=== PATIENT | female | born 1995 | race Caucasian/White ===

== ENCOUNTER → 2021-01-22 15:36 | Outpatient (BNVA) | payer MEDICAID, SELFPAY | PROVIDERS: Family Provider Physician Assistant; Visit Provider Nurse Practitioner Family | DX: R35.0 Frequency of micturition (principal); N39.0 Urinary tract infection, site not specified | CPT/HCPCS: 81000 ==

== ENCOUNTER 2021-07-31 17:48 | Emergency (ER) | payer MEDICAID, SELFPAY ==
[2021-07-31 17:54] VITALS: BP 130/67; PULSE 96; RESP 20; TEMP 37; O2SAT 99; BMI 36.6
--- NOTE | 2021-07-31 18:38 | XRR_ITS ---
PROCEDURE INFORMATION: Exam: XR Chest Exam date and time: 07/31/2021 6:38 PM Age: 26 years old Clinical indication: Cough and fever TECHNIQUE: Imaging protocol: XR of the chest. Views: 1 view. COMPARISON: CR Chest 1 [place] [id number] 01/15/2018 8:35 AM FINDINGS: Lungs: Unremarkable. No consolidation. Pleural spaces: Unremarkable. No pleural effusion. No pneumothorax. Heart/Mediastinum: Unremarkable. No cardiomegaly. Bones/joints: Unremarkable. XR/XR chest 1V portable [id number] IMPRESSION: No acute findings.
== END 2021-07-31 20:03 ==
PROVIDERS: Emergency Provider Family Medicine
DX: Z53.21 Procedure and treatment not carried out due to patient leaving prior to being seen by health care provider (principal)
CPT/HCPCS: 71045

== ENCOUNTER 2021-07-31 21:24 | Emergency (ER) | payer MEDICAID, SELFPAY ==
[2021-07-31 21:37] VITALS: BP 136/68; PULSE 79; RESP 18; TEMP 36.3; O2SAT 98; BMI 36.6
--- NOTE | 2021-07-31 23:28 | ED_ITS ---
HPI - General Adult General: Chief complaint: General Medical Stated complaint: Cough Time Seen by Provider: 07/31/21 23:19 History of Present Illness: HPI narrative: Patient is a 26-year-old female comes to the ED with upper respiratory symptoms. Patient has had symptoms for the past 2 and half weeks. Patient says she is had productive cough with greenish-yellow sputum. She also reports having sinus congestion and pain along with nasal congestion and drainage. She has taken a full course of Z-Kg and prednisone and has not had any improvement. She tested negative for Covid last Sunday. Patient also reports having a headache. Patient denies any chance of being and just finished her menstrual period about a week ago. Associated symptoms: Reports headache(s); Deny chest pain, dyspnea, nausea, rash, palpitations or vomiting Review of Systems Const: Denies: fever(s), chills or fatigue Eyes: Denies: change in vision or eye discomfort ENMT: Reports: nasal discharge, nasal congestion and sinus pain; Denies: throat pain or odynophagia Card: Denies: chest pain, palpitations, edema, swelling of feet/ankles, dyspnea on exertion or orthopnea Resp: Reports: productive cough; Denies: dyspnea or non-productive cough GI: Denies: abdominal pain, nausea, vomiting, diarrhea, constipation or hematochezia : Denies: flank pain, dysuria or hematuria Musc: Denies: neck pain, back pain or extremity swelling Skin/Breast: Denies: rash or new lesions Neuro: Reports: headache(s); Denies: numbness in extremities or weakness in extremities PFS ED PFSH: Social History Smoking and tobacco status: never smoked Female Reproductive History: Date of last menstrual period: 07/19/21 Physical Exam Const: COMMON NORMALS: no acute distress, patient oriented x3 and alert GENERAL APPEARANCE: cooperative and comfortable HENMT: COMMON NORMALS: normocephalic HEAD & SCALP: normocephalic FACE & SINUS: sinus tenderness frontal (Bilateral) MOUTH: Normal oral and palatal mucosa present THROAT: posterior oropharynx normal and uvula midline Neck/C-Spine: COMMON NORMALS: supple GENERAL: Yes normal visual inspection Resp: COMMON NORMALS: normal respiratory effort, No retractions, No use of accessory muscles and clear to auscultation bilaterally EFFORT & INSPECTION: Yes able to speak in complete sentences and Yes Actively coughing dry and strong AUSCULTATION: clear to auscultation bilaterally Cardio: COMMON NORMALS: regular rate, regular rhythm, S1 normal heart sound present, S2 normal heart sound present, No gallops present (Cardio), No clicks present (Cardio), No murmurs present (Cardio) and Peripheral pulses 2+ throughout RATE: regular rate RHYTHM: regular rhythm HEART SOUNDS: S1 normal heart sound present and S2 normal heart sound present PERIPHERAL PULSES: Peripheral pulses 2+ throughout GI: COMMON NORMALS: Normal to inspection, nondistended, normoactive bowel sounds present, Soft to palpation, non-tender and no masses PALPATION: Yes Soft to palpation : COMMON NORMALS: Yes no CVA tenderness BLADDER/KIDNEY EXAM: Yes no CVA tenderness Back/Pelvis: COMMON NORMALS: no CVA tenderness Extremity: COMMON NORMALS: normal to inspection Neuro: COMMON NORMALS: patient oriented x3 and moves all extremities SENSORIUM/ORIENTATION: Yes alert Skin: GENERAL SKIN EXAM: dry skin Course Vital Signs: Vital signs: Vital Signs Temperature 97.3 F L 07/31/21 21:37 Pulse Rate 81 08/01/21 00:56 Respiratory Rate 20 H 08/01/21 00:56 Blood Pressure 129/77 08/01/21 00:56 Pulse Oximetry 97 08/01/21 00:56 MDM - General Adult MDM Narrative: Medical decision making narrative: Patient is a 26-year-old female comes to the ED with sinus pain and a productive cough for the past 2 weeks. Patient had negative Covid test earlier this week. Vitals are stable. Patient does have a lot of active strong coughing while here in the ED and also has some frontal sinus pain with palpation. Chest x-ray showed no acute findings. Influenza negative. She was given a DuoNeb breathing treatment here in the ED and her cough symptoms improved. Patient was diagnosed with acute bronchitis and sinusitis. She was discharged home with a prescription for an albuterol inhaler, Decadron, Zofran, Tessalon Perles and Bactrim. She was told to follow-up with her PCP in 5 to 7 days reevaluation. Return to ED precautions given. Patient stood agree with plan. Lab Data: Labs: Lab Results 08/01/21 00:03 Influenza Type A A g Negative (Negative) Influenza Type B A g Negative (Negative) Imaging Data^: CXR: Attestation: I personally reviewed and interpreted this imaging study as follows: Radiologist's impression: Darren [address] [id number] ReportSigned Patient: Gayle Felix #: [id number]: 1995Acct#:O [id number]/Sex: 26 / FADM Date: 07/31/21Loc: ERRoom/Bed:Attending Dr: Ordering Provider/Ordering MD: Stoney Goldstein Date of Service: 07/31/21 Procedure(s): XR chest 1V portable [id number] Accession Number(s): [id number] Report Number: [id number] PROCEDURE INFORMATION: Exam: XR Chest Exam date and time: 07/31/2021 6:38 PM Age: 26 years old Clinical indication: Cough and fever TECHNIQUE: Imaging protocol: XR of the chest. Views: 1 view. COMPARISON: CR Chest 1 [place] [id number] 01/15/2018 8:35 AM FINDINGS: Lungs: Unremarkable. No consolidation. Pleural spaces: Unremarkable. No pleural effusion. No pneumothorax. Heart/Mediastinum: Unremarkable. No cardiomegaly. Bones/joints: Unremarkable. XR/XR chest 1V portable [id number] IMPRESSION: No acute findings. Dictated By:Keny Linares MDSigned By:Keny Linares MDSigned Date/Time:07/31/212005DD/ 183 Discharge Plan Discharge Patient Disposition: Home Clinical Impression: Acute bronchitis Qualifiers: Bronchitis organism: unspecified organism Qualified Code(s): J20.9 - Acute bronchitis, unspecified Sinusitis, acute Qualifiers: Sinusitis location: frontal Recurrence: non-recurrent Qualified Code(s): J01.10 - Acute frontal sinusitis, unspecified Condition: Stable Prescriptions: New Bactrim DS 800-160 mg tablet 1 tab PO BID 7 Days Qty: 14 RF: 0 Decadron 6 mg tablet 6 mg PO DAILY 7 Days Qty: 7 RF: 0 benzonatate 100 mg capsule 100 mg PO Q6H PRN (Reason: cough) Qty: 20 RF: 0 albuterol sulfate 90 mcg/actuation HFA aerosol inhaler 2 inh inhalation Q6H PRN (Reason: shortness of breath or wheezing) Qty: 6.7 RF: 0 Zofran 4 mg tablet 4 mg PO Q8H PRN (Reason: nausea and vomiting) Qty: 20 RF: 0 No Action norgestimate-ethinyl estradiol [Sprintec (28)] 0.25-35 mg-mcg tablet 1 tab PO DAILY RF: 0 azithromycin 250 mg tablet See Rx Instructions PO .COMPLEX 5 Days Qty: 6 RF: 0 prednisone 10 mg tablet 30 mg PO DAILY 5 Days Qty: 15 RF: 0 Discharge Orders: Discharge ED (Routine); Ordered 08/01/21 Ordered By: Stoney Goldstein Discharge Diet: Regular Discharge Activity: Resume usual activity Patient Instructions: Sinusitis (ED), Acute Bronchitis (ED), Opioid Safety Activity Restrictions/Additional Instructions: Follow-up with medical provider as directed in 5 to 7 days reevaluation. Take medications as prescribed. Return to the ER or your medical provider if condition worsens. Please read and understand discharge instructions. Thank you for choosing [facility] for your healthcare needs today. Please realize this is an emergency room and that we are providing you with a medical screening exam and this may not be complete and all inclusive of all the testing and or work up that you may need to determine your ailment or severity of your illness. It is very important that you follow up as instructed or that you return to the Emergency Department should you have concerns or if your condition changes or worsens in any way. Coding Level of Care Code ED Assembler Rubber Footwear for Xochitl Stovall Exam Comprehensive
[2021-08-01 00:22] VITALS: PULSE 78; RESP 22; O2SAT 94
[2021-08-01] MEDS: ipratropium-albuterol 3 mL Neb 6 ML INHALATION (00:22)
[2021-08-01 00:23] LABS: Influenza A by IFA Negative (Negative); Influenza B by IFA Negative (Negative)
[2021-08-01 00:31] VITALS: RESP 20
[2021-08-01 00:32] VITALS: PULSE 84; RESP 20; O2SAT 96
[2021-08-01] MEDS: dexamethasone 10 mg/mL INJ IM (00:52)
[2021-08-01] MEDS: ketorolac 60 mg/2 mL INJ IM (00:52)
[2021-08-01] MEDS: benzonatate 100 mg Capsule PO (00:53)
[2021-08-01] MEDS: sulfamethoxazole-trimeth DS 160-800 mg Tablet 1 TAB PO (00:53)
[2021-08-01] MEDS: ondansetron 4 MG Tablet PO (00:53)
[2021-08-01 00:56] VITALS: BP 129/77; PULSE 81; RESP 20; O2SAT 97
== END 2021-08-01 00:56 | disposition home or self-care (01) ==
PROVIDERS: Emergency Provider Physician Assistant
DX: J20.9 Acute bronchitis, unspecified (principal); J01.10 Acute frontal sinusitis, unspecified
CPT/HCPCS: 87804; 94640; 96372; 99284; J1100; J1885; Q0162

== ENCOUNTER 2022-03-09 03:10 | Emergency (ER) | payer MEDICAID, SELFPAY ==
[2022-03-09 03:23] VITALS: BP 122/78; PULSE 106; RESP 16; TEMP 37.1; O2SAT 97; BMI 41.7
--- NOTE | 2022-03-09 04:03 | W.ED.GENADLT ---
HPI - General Adult General: Chief complaint: General Medical Stated complaint: Fever, headache Time Seen by Provider: 03/09/22 03:16 History of Present Illness: Ms. Felix is a 27-year-old lady currently approximately 16 weeks who presents to the emergency department due to headache and cough. Onset of symptoms was approximately 5 days ago. She does have sick contacts with similar symptoms. She has had frontal headache with mild associated unsteady feeling. Denies other neurologic deficits. She has had cough which is nonproductive and associated aching. Overall course of symptoms has persisted. Intensity is moderate. No other specific changes in health, exacerbating, or alleviating factors identified. Onset (ago): day(s) Severity: moderate Associated symptoms: Reports cough, headache(s) and malaise Review of Systems General: Reports: 10 or more systems reviewed and unremarkable except in HPI and below Const: Reports: malaise Neuro: Reports: headache(s) PFSH ED PFSH: Social History Smoking and tobacco status: never smoked Female Reproductive History: Date of last menstrual period: 07/19/21 Physical Exam Const: COMMON NORMALS: patient oriented x3 and alert GENERAL APPEARANCE: cooperative and well developed HENMT: COMMON NORMALS: normocephalic and atraumatic HEAD & SCALP: normocephalic and atraumatic THROAT: posterior oropharynx normal Eye: COMMON NORMALS: conjunctivae normal CONJUNCTIVA: Yes conjunctivae normal SCLERA: sclerae normal Neck/C-Spine: COMMON NORMALS: supple GENERAL: Yes trachea midline Resp: COMMON NORMALS: normal respiratory effort EFFORT & INSPECTION: Yes able to speak in complete sentences AUSCULTATION: diminished lung sounds Cardio: COMMON NORMALS: regular rate and regular rhythm RATE: regular rate RHYTHM: regular rhythm GI: COMMON NORMALS: Soft to palpation PALPATION: Yes Soft to palpation and No Tenderness to palpation present (GI) PERCUSSION: normal to percussion Extremity: GENERAL: Yes normal exam except as noted and No edema Neuro: COMMON NORMALS: patient oriented x3, CN's II-XII intact bilaterally, moves all extremities, no focal motor deficits and no sensory deficits noted SENSORIUM/ORIENTATION: Yes alert and No Orientation impaired Psych: COMMON NORMALS: mental status grossly normal and Normal thought process present THOUGHT PROCESS: Normal thought process present Course Vital Signs: Vital signs: Vital Signs Temperature 98.7 F 03/09/22 03:23 Pulse Rate 102 H 03/09/22 06:35 Respiratory Rate 16 03/09/22 06:35 Blood Pressure 125/82 03/09/22 06:35 Pulse Oximetry 99 03/09/22 06:35 Oxygen Delivery Me thod 03/09/22 03:23 MDM - General Adult Medical Decision Making 27-year-old lady currently presenting with generalized symptoms including headache. No focal abnormalities identified on exam. Patient is COVID-positive which likely explain symptoms. She was improved with symptom treatment with near complete resolution of headache. Satisfactory for outpatient management. Medical Records I reviewed the patient's medical records. Lab Data I reviewed the patient's lab results. Laboratory Results Influenza Type A Ag Negative (Negative) 03/09/22 03:45 Influenza Type B Ag Negative (Negative) 03/09/22 03:45 SARS-CoV-2 Ag (Rapid) Positive (Negative) H 03/09/22 03:45 Discharge Plan Discharge Patient Disposition: Home Clinical Impression: COVID-19, Headache Condition: Stable Prescriptions: New Reglan 10 mg tablet 10 mg PO Q6H PRN (Reason: headache) Qty: 10 0RF Rx Instructions: take with benadryl 25 mg if needed No Action norgestimate-ethinyl estradiol [Sprintec (28)] 0.25-35 mg-mcg tablet 1 tab PO DAILY azithromycin 250 mg tablet See Rx Instructions PO .COMPLEX 5 Days Qty: 6 0RF Rx Instructions: take 500 mg today (day 1), then 250 mg for 4 days (days 2-5) PO prednisone 10 mg tablet 30 mg PO DAILY 5 Days Qty: 15 0RF benzonatate 100 mg capsule 100 mg PO Q6H PRN (Reason: cough) Qty: 20 0RF albuterol sulfate 90 mcg/actuation HFA aerosol inhaler 2 inh inhalation Q6H PRN (Reason: shortness of breath or wheezing) Qty: 6.7 0RF Zofran 4 mg tablet 4 mg PO Q8H PRN (Reason: nausea and vomiting) Qty: 20 0RF Discharge Orders: Discharge ED (Routine); Ordered 03/09/22 Ordered By: Eddie Raman Discharge Diet: Usual diet Discharge Activity: Increase activity as tolerated Patient Instructions: at 15 to 18 Weeks (ED), COVID-19 (Coronavirus Disease 2019) (ED) Activity Restrictions/Additional Instructions: Thank you for visiting the emergency department. You were seen evaluated for cough and headache as well as generalized symptoms. You are found of COVID which likely explains her symptoms. We are pleased that you improved with treatment. Please follow-up with your education administrator and primary care provider. Please return to the emergency department for worsening symptoms or anything else that you are concerned about a feel needs emergency department evaluation. Coding Level of Care Code ED Psychosocial Rehabilitation Counselor for Xochitl Stovall
[2022-03-09 04:15] LABS: Influenza A by IFA Negative (Negative); Influenza B by IFA Negative (Negative); SARS Covid-2 Antigen Positive (Negative)
[2022-03-09] MEDS: sodium chloride 0.9% 1,000 ML 999 ML IV (05:21)
[2022-03-09] MEDS: metoclopramide 5 mg/mL SDV 2 mL 10 MG IVP (05:22)
[2022-03-09] MEDS: diphenhydrAMINE 50 mg/mL SDV 1mL 25 MG IVP (05:22)
[2022-03-09 06:35] VITALS: BP 125/82; PULSE 102; RESP 16; O2SAT 99
== END 2022-03-09 06:32 | disposition home or self-care (01) ==
PROVIDERS: Emergency Provider Emergency Medicine
DX: U07.1 COVID-19 (principal); R51.9 Headache, unspecified
CPT/HCPCS: 87426; 87804; 96365; 96375; 99284; J1200; J2765; J3475; J7030

== ENCOUNTER 2022-08-21 04:00 | Inpatient (IN) | payer MEDICAID, SELFPAY ==
[2022-08-21] VITALS (35 sets, daily range): BP systolic 114–167; BP diastolic 55–82; PULSE 81–112; RESP 16–18; TEMP 36.6–37.2; O2SAT 98–99
[2022-08-21] MEDS: acetaminophen 325 mg Tablet 650 MG PO ×2 (04:03→18:11)
[2022-08-21] MEDS: hyDROXYzine 25 mg Capsule 50 MG PO (04:04)
[2022-08-21] MEDS: ondansetron 2 mg/ML SDV 2 mL 4 MG IVP (05:02)
[2022-08-21 05:08] LABS: Basophils % 0.3 %; Eosinophils # 0.1 10^3/uL (0.0-0.8); Eosinophils % 0.7 %; Hematocrit 34.1 % (37.0-47.0); Hemoglobin 10.7 g/dL (11.5-15.3); Lymphocytes # 2.2 10^3/uL (0.8-4.8); Lymphocytes % 19.6 %; Mean Corpuscular HGB Conc 31.4 g/dL (30.0-36.0); Mean Corpuscular Hemoglobin 27.2 pg (28.0-34.0); Mean Corpuscular Volume 86.5 fl (81-99); Mean Platelet Volume 10.5 fL (7.4-10.4); Monocytes % 8.7 %; Neutrophils # 7.93 10^3/uL (1.8-7.7); Neutrophils % 69.9 %; Nucleated Red Blood Cells % 0 %; Platelet Count 179 10^3/cmm (130-400); Red Blood Count 3.94 10^6/uL (4.1-5.3); White Blood Count 11.4 10^3/uL (4.0-10.0)
[2022-08-21] MEDS: fentaNYL 50 mcg/mL INJ 2mL IVP (05:17)
[2022-08-21] MEDS: metoclopramide 5 mg/mL SDV 2 mL 10 MG IV (05:35)
[2022-08-21] MEDS: dextrose 5%-lactated ringers 1,000 ML 125 ML IV (06:45)
[2022-08-21] MEDS: oxytocin 30 UNIT/500 ML BAG 999 UNIT IV (06:45)
--- NOTE | 2022-08-21 06:58 | PM.OPHPUD ---
Labor & Delivery H&P Update Date of Procedure: August 21, 2022 Date H&P Performed: 08/17/22 Admission Diagnosis: Planned procedure: expectant management of labor
--- NOTE | 2022-08-21 06:59 | PM.DELIVERY ---
Delivery Note: Date of delivery: August 21, 2022 Procedure: Normal spontaneous vaginal delivery Estimated blood loss (mL): 75 Pre-Delivery Course: This is a 27-year-old who transferred care to me, Dr. Bauer, at about 33 weeks gestation. She is blood type A positive, antibody negative, hepatitis B surface antigen nonreactive, hepatitis C antibody nonreactive, HIV nonreactive, RPR nonreactive, rubella nonimmune, she passed her glucose tolerance test, GBS negative. She was started on an SSRI in the third trimester for depression and anxiety. Delivery: The patient presented to the labor and delivery 4 hours prior to her scheduled induction complaining of contractions. Her cervical exam was essentially unchanged from clinic. When she was 6 cm dilated they called for an epidural but at that point she was making rapid change. She was an anterior lip with a bulging bag of water when I presented and artificial rupture of membranes was performed with thin meconium. She had a normal spontaneous vaginal delivery of a viable female infant weight 8 pounds 11 ounces Apgars 6 and 8 over an intact perineum. The infant was suctioned at delivery and placed on the mother's chest. The cord was clamped and cut. The infant was somewhat stunned so she was taken to the warmer for stimulation. The placenta was delivered gross grossly intact and normal to inspection. There were no lacerations. Blood loss was minimal with estimated blood loss 75 mL. History History History 3 Term 2 0 Miscarriages/Ectopic 0 Living Children 2 A&P Assessment and plan (1) (normal spontaneous vaginal delivery): Routine postpatrum care. (2) Encounter for sterilization: Pt still desires tubal. We will schedule with anesthesia. Coding Level of Care Code Acute [employer] Member Other Ranks for Chg Fwd Diagnoses (normal spontaneous vaginal delivery) O80 Encounter for sterilization Z30.2
[2022-08-21] MEDS: TRAMadol 50 mg Tablet PO (07:40)
[2022-08-21] MEDS: benzocaine-menthol 78 gm Canister 1 SPRAY TOPICAL (07:41)
[2022-08-21] MEDS: miSOPROStol 200 mcg Tablet 800 MCG PR (08:35)
[2022-08-21] MEDS: prenatal vitamin Capsule 1 CAP PO (08:35)
[2022-08-21] MEDS: ibuprofen 800 mg tablet PO ×3 (08:35→20:30)
[2022-08-21] MEDS: docusate sodium 100 mg Capsule PO ×2 (08:35→18:08)
[2022-08-21] MEDS: lanolin oint 7 gm 1 APPLIC TOPICAL (08:38)
--- NOTE | 2022-08-21 11:28 | ANES.PREANE2 ---
Pre-Anesthetic Assessment Height/Weight: Height 1.65 m Weight 122.47 kg Temp Pulse Resp BP O2 Del Method 99.0 F 99 18 115/68 08/21/22 09:00 08/21/22 09:00 08/21/22 09:00 08/21/22 09:00 08/21/22 02:53 Preop Diagnosis: VAGINAL DELIVERY REQUEST PP TUBAL PPBTL Familial anesthetic complications: none Was Beta Kannan taken within 24 hours: N/A Was Clonidine taken within 24 hours: N/A Social No alcohol and No tobacco Exam alert, oriented x 3, clear to auscultation bilaterally and regular rate & rhythm Airway Submandibular: within normal limits Cervical ROM: within normal limits Mallampati: Class II Dentition: full Metabolic Morbid Obesity Anesthetic Plan ASA status: 2 Anesthesia: General Medications/Allergies Home Medications Medication Instructions Recorded Confirmed Last Taken Type escitalopram oxalate 10 mg tablet 10 mg PO DAILY 08/21/22 08/21/22 08/20/22 20:00 History ondansetron HCl 4 mg tablet 8 mg PO Q8H PRN nausea and vomiting 08/21/22 08/21/22 08/20/22 20:00 History Allergies Allergy/AdvReac Type Severity Reaction Status Date / Time Penicillins Allergy ALGY-Anaphy Verified 08/21/22 01:27 laxis Current Medications Generic Name Dose Route Start Last Admin Trade Name Freq PRN Reason Stop Dose Admin Benzocaine 1 spray 08/21/22 06:55 08/21/22 07:41 Benzocaine-Menthol 78 Gm Canister TOPICAL 1 spray PRN PRN Administration PAIN Docusate Sodium 100 mg 08/21/22 09:00 08/21/22 08:35 Docusate Sodium 100 Mg Capsule PO 100 mg BID SHARON Administration Ibuprofen 800 mg 08/21/22 09:00 08/21/22 08:35 Ibuprofen 800 Mg Tablet PO 800 mg TID SHARON Administration Lanolin 1 applic 08/21/22 06:55 08/21/22 08:38 Lanolin Oint 7 Gm TOPICAL 1 applic PRN PRN Administration DRYNESS Multivit/Folic Acid/Iron 1 cap 08/21/22 09:00 08/21/22 08:35 Vitamin Capsule PO 1 cap DAILY SHARON Administration Tramadol HCl 50 - 100 mg 08/21/22 06:55 08/21/22 07:40 Tramadol 50 Mg Tablet PO 100 mg Q4H PRN Administration MODERATE TO SEVERE PAIN PFSH Anesthesia Social History Smoking and tobacco status: never smoked Female Reproductive History Date of last menstrual period: 07/19/21 : 3 Data Anesthesia 08/21/22 05:00 Short CBC 08/21/22 Range/Units 05:00 WBC 11.4 H (4.0-10.0) 10^3/uL Hgb 10.7 L (11.5-15.3) g/dL Hct 34.1 L (37.0-47.0) % MCV 86.5 (81-99) fl Plt Count 179 (130-400) 10^3/cmm Neut % (Auto) 69.9 % Neut # (Auto) 7.93 H (1.8-7.7) 10^3/uL Cardiac Studies: No Data to Display
--- NOTE | 2022-08-21 11:52 | PC.NURSE ---
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
[2022-08-21] MEDS: ondansetron 4 MG Tablet 8 MG PO (12:20)
[2022-08-21 18:27] LABS: Hemoglobin 10.2 g/dL (11.5-15.3); Mean Corpuscular HGB Conc 30.9 g/dL (30.0-36.0); Mean Corpuscular Hemoglobin 26.8 pg (28.0-34.0); Mean Corpuscular Volume 86.8 fl (81-99); Platelet Count 159 10^3/cmm (130-400); Red Cell Distribution Width 14.2 % (12.1-15.1); White Blood Count 12.4 10^3/uL (4.0-10.0)
[2022-08-21] MEDS: escitalopram 10 mg Tablet PO (20:30)
[2022-08-22 00:14] VITALS: BP 124/86; PULSE 79; RESP 18; TEMP 36.7; O2SAT 98
[2022-08-22 04:05] VITALS: BP 112/71; PULSE 72; RESP 17; TEMP 36.4; O2SAT 97
[2022-08-22] MEDS: docusate sodium 100 mg Capsule PO ×2 (08:41→20:23)
[2022-08-22] MEDS: ibuprofen 800 mg tablet PO ×3 (08:41→20:22)
[2022-08-22] MEDS: prenatal vitamin Capsule 1 CAP PO (08:41)
[2022-08-22 09:15] VITALS: BP 116/75; PULSE 85; TEMP 36.8; O2SAT 97
[2022-08-22 16:33] VITALS: BP 125/75; PULSE 85; TEMP 36.7; O2SAT 96
--- NOTE | 2022-08-22 16:46 | P.PN_ITS ---
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 She has some abdominal tenderness and hardness she would like me to examine Vitals/I&O/Wt Last Vital Signs Temp 98.1 F 08/22/22 16:33 Pulse 85 08/22/22 16:33 Resp 17 08/22/22 04:05 BP 125/75 08/22/22 16:33 Pulse Ox 96 08/22/22 16:33 O2 Del Method 08/22/22 16:33 Weight last 48 hrs Weight 122.47 kg Physical Exam Narrative: Alert and oriented, sitting up in bed, heart regular rate and rhythm, lungs clear to auscultation bilaterally, abdomen is soft and nontender, fundus is firm and U- 2, extremities have no calf tenderness but do have some edema. Her area of concern is a grapefruit sized area of induration and edema on her pannus -there is no erythema. Data 08/21/22 18:21 A&P Assessment and plan (1) (normal spontaneous vaginal delivery): Routine care Attestations Medical Necessity Statement*: care Coding Level of Care Code Acute Machine Feeder Raw Stock for Chg Fwd Diagnoses (normal spontaneous vaginal delivery) O80
[2022-08-22] MEDS: escitalopram 10 mg Tablet PO (20:23)
[2022-08-22 21:40] VITALS: BP 120/63; PULSE 93; RESP 16; TEMP 36.9; O2SAT 98
[2022-08-22] MEDS: TRAMadol 50 mg Tablet PO (23:58)
[2022-08-23 04:39] VITALS: BP 121/68; PULSE 88; RESP 16; TEMP 36.7
--- NOTE | 2022-08-23 08:48 | P.DS_ITS ---
Discharge Providers Date of Admission: 08/21/22 04:00 Date of Discharge: August 23, 2022 Attending Provider at Admission: Delores Bauer MD Attending Provider at Discharge: Delores Bauer MD Diagnoses at Discharge Discharge Diagnosis (1) (normal spontaneous vaginal delivery): Status: Acute Reason for Visit Reason for Visit: CONTRACTIONS Hospital Course Hospital Course This is a 27-year-old G3 now P3 who was admitted in active labor. She had a normal spontaneous vaginal delivery of a viable female infant. Mother and did well after delivery. She was ambulating, tolerating a regular diet, had minimal vaginal bleeding and was comfortable with discharge home. Physical Exam Narrative: Alert and oriented, resting in bed, heart regular rate and rhythm, lungs clear to auscultation bilaterally, fundus firm and U- 2, extremities have trace edema but no calf tenderness Discharge Data Studies Completed and Pending Laboratory Results WBC 12.4 10^3/uL (4.0-10.0) H 08/21/22 18:21 RBC 3.80 10^6/uL (4.1-5.3) L 08/21/22 18:21 Hgb 10.2 g/dL (11.5-15.3) L 08/21/22 18:21 Hct 33.0 % (37.0-47.0) L 08/21/22 18:21 MCV 86.8 fl (81-99) 08/21/22 18:21 MCH 26.8 pg (28.0-34.0) L 08/21/22 18:21 MCHC 30.9 g/dL (30.0-36.0) 08/21/22 18:21 RDW 14.2 % (12.1-15.1) 08/21/22 18:21 Plt Count 159 10^3/cmm (130-400) 08/21/22 18:21 MPV 11.0 fL (7.4-10.4) H 08/21/22 18:21 Neut % (Auto) 69.9 % 08/21/22 05:00 Lymph % (Auto) 19.6 % 08/21/22 05:00 [place] % (Auto) 8.7 % 08/21/22 05:00 Eos % (Auto) 0.7 % 08/21/22 05:00 Baso % (Auto) 0.3 % 08/21/22 05:00 Neut # (Auto) 7.93 10^3/uL (1.8-7.7) H 08/21/22 05:00 Lymph # (Auto) 2.2 10^3/uL (0.8-4.8) 08/21/22 05:00 [place] # (Auto) 1.0 10^3/uL (0.2-0.9) H 08/21/22 05:00 Eos # (Auto) 0.1 10^3/uL (0.0-0.8) 08/21/22 05:00 Baso # (Auto) 0.0 10^3/uL (0.0-0.1) 08/21/22 05:00 Nucleated RBC % (auto) 0 % 08/21/22 05:00 Nucleated RBCs # 0.0 /100WBC 08/21/22 05:00 Vitals Last Vital Signs Temp 98.0 F 08/23/22 04:39 Pulse 88 08/23/22 04:39 Resp 16 08/23/22 04:39 BP 121/68 08/23/22 04:39 Pulse Ox 98 08/22/22 21:40 O2 Del Method 08/23/22 04:39 Discharge Plan Discharge Patient Disposition: Home Condition: Stable Prescriptions: New ibuprofen 800 mg Tablet 800 mg PO TID PRN (Reason: Abdominal Discomfort) Qty: 30 0RF Continued escitalopram oxalate 10 mg Tablet 10 mg PO DAILY Zofran 4 mg tablet 8 mg PO Q8H PRN (Reason: nausea and vomiting) Discharge Orders: Discharge Order (Routine); Ordered 08/23/22 Ordered By: Delores Bauer Referrals: Delores Bauer MD [Physician] - 1 month Discharge Diet: Usual diet Discharge Activity: Limit activity as instructed Patient Instructions: Opioid Safety Discharge Attestations Time Spent in Discharge Care*: less than 30 min Quality Metrics Clinical Quality Measures [ No reported AMI, CVA or VTE this stay] Coding Level of Care Code Acute Chg FW DC note Diagnoses (normal spontaneous vaginal delivery) O80
[2022-08-23] MEDS: docusate sodium 100 mg Capsule PO (09:45)
[2022-08-23] MEDS: prenatal vitamin Capsule 1 CAP PO (09:45)
[2022-08-23] MEDS: ibuprofen 800 mg tablet PO ×2 (09:45→15:50)
[2022-08-23] MEDS: TRAMadol 50 mg Tablet PO ×2 (12:04→16:35)
[2022-08-23 16:07] VITALS: BP 114/71; PULSE 98; RESP 17; TEMP 36.8
[2022-08-23] MEDS: measles,mumps,rubella pf Vial (w/diluent) 0.5 ML SUBCUT (16:35)
== END 2022-08-23 16:40 | disposition home or self-care (01) | DRG 807 ==
LOC: OPOB 10:26
PROVIDERS: Admitting Provider Family Medicine; Visit Provider Family Medicine
DX: O77.0 Labor and delivery complicated by meconium in amniotic fluid (principal); Z37.0 Single live birth; O99.344 Other mental disorders complicating childbirth; O99.214 Obesity complicating childbirth; E66.01 Morbid (severe) obesity due to excess calories; F41.8 Other specified anxiety disorders; Z3A.39 39 weeks gestation of pregnancy
CPT/HCPCS: 36415; 59025; 59409; 85025; 85027; 90707; 96372; 96374; 99211; J2405; J2590; J2765; J3010; J7121; Q0162

== ENCOUNTER 2023-05-08 20:00 | Outpatient (CLI) | payer MEDICAID, SELFPAY | END 2023-05-08 20:01 | disposition home or self-care (01) | LOC: SLEEP 05-09 04:44 | PROVIDERS: Visit Provider Family Medicine | DX: G47.10 Hypersomnia, unspecified (principal); R06.83 Snoring | CPT/HCPCS: 95810 ==

== ENCOUNTER → 2024-03-21 18:34 | Outpatient (BNVA) | payer MEDICAID, SELFPAY | PROVIDERS: Visit Provider Emergency Medicine | DX: R05.9 Cough, unspecified (principal); J20.8 Acute bronchitis due to other specified organisms; U07.1 COVID-19 | CPT/HCPCS: 87426 ==

== ENCOUNTER 2024-07-16 07:11 | Outpatient (CLI) | payer MEDICAID, SELFPAY ==
--- NOTE | 2024-07-16 07:15 | USR_ITS ---
PROCEDURE INFORMATION: Exam: US Abdomen; Limited Exam date and time: 07/16/2024 7:24 AM Age: 29 years old Clinical indication: Abnormal findings; Abnormal lab test; Other: Elevation of alt levels; TECHNIQUE: Imaging protocol: Real time ultrasound of the abdomen with image documentation. Limited exam focused on the region of clinical interest. COMPARISON: US OB >= 14 weeks fetus [id number] 05/08/2022 2:56 PM FINDINGS: Liver: Diffuse hepatic steatosis. No focal hepatic mass. Gallbladder: Gallbladder wall measures 2 mm. No gallstones. Biliary ducts: Common bile duct measures 5 mm. Right kidney: The right kidney measures 10.0 cm. No hydronephrosis. US/US abdomen limited [id number] IMPRESSION: Diffuse hepatic steatosis.
== END 2024-07-16 07:12 | disposition home or self-care (01) ==
LOC: RAD 07:12
PROVIDERS: PCP Nurse Practitioner Occupational Health; Visit Provider Nurse Practitioner Occupational Health
DX: R74.01 Elevation of levels of liver transaminase levels (principal); K76.0 Fatty (change of) liver, not elsewhere classified
CPT/HCPCS: 76705

== ENCOUNTER → 2025-07-25 13:23 | Outpatient (BNVA) | payer MEDICAID, SELFPAY | PROVIDERS: PCP Nurse Practitioner Occupational Health; Visit Provider Emergency Medicine | DX: R39.89 Other symptoms and signs involving the genitourinary system (principal) | CPT/HCPCS: 87086 ==

== ENCOUNTER → 2025-08-19 10:08 | Outpatient (BNVA) | payer MEDICAID, SELFPAY | PROVIDERS: PCP Nurse Practitioner Occupational Health; Visit Provider Registered Nurse Neonatal Intensive Care | DX: R50.9 Fever, unspecified (principal) | CPT/HCPCS: 87400 ==